=== PATIENT | female | born 1960 | race Native Hawaiian/Other Pacific Islander ===

== ENCOUNTER 2017-04-23 07:09 | Inpatient (IN) | payer MEDICAID ==
[2017-04-19 13:01] LABS: Hematocrit 41.4 % (30.3-42.9); Hemoglobin 14.1 gm/dl (10.1-14.3); Mean Corpuscular HGB Conc 34 % (30-34); Mean Corpuscular Hemoglobin 29 pg (28-32); Mean Corpuscular Volume 86 fl (79-97); Platelet Count 262 K/mm3 (140-440); Red Blood Count 4.83 M/mm3 (3.65-5.03); Red Cell Distribution Width 13.1 % (13.2-15.2); White Blood Count 10.1 K/mm3 (4.5-11.0)
--- NOTE | 2017-04-19 13:03 | Anesthesia Consultation ---
Anesthesia Consult and Med Hx Date of service: 04/23/17 - Airway Anesthetic Teeth Evaluation: Poor, Partials ROM Head & Neck: Adequate Mental/Hyoid Distance: Adequate Mallampati Class: Class III Intubation Access Assessment: Possibly Difficult - Pulmonary Exam CTA: Yes - Cardiac Exam Cardiac Exam: RRR - Pre-Operative Health Status ASA Pre-Surgery Classification: ASA2 Proposed Anesthetic Plan: Epidural, Spinal Nerve Block: Femoral - Pulmonary Hx Smoking: No Hx Asthma: No COPD: No Hx Sleep Apnea: No (JAME PRE SCREEN HIGH RISK.) - Cardiovascular System Hx Hypertension: Yes (X 15 YRS) Hx Coronary Artery Disease: No Hx Heart Attack/AMI: No Hx Angina: No - Central Nervous System Hx Seizures: No CVA: No Hx Back Pain: Yes (NECK PAIN) Hx Psychiatric Problems: No - Gastrointestinal Hx Gastroesophageal Reflux Disease: No - Endocrine Hx Renal Disease: (h/o nephrolithiasis treated) Hx Liver Disease: No Hx Non-Insulin Dependent Diabetes: No Hx Thyroid Disease: No - Other Systems Hx Cancer: No Hx Obesity: Yes
[2017-04-19 13:13] LABS: INR 0.94 (0.87-1.13)
[2017-04-19 13:14] LABS: Partial Thromboplastin Time 29.1 Sec. (24.2-36.6)
[2017-04-19 13:32] LABS: Alanine Aminotransferase 44 units/L (7-56); Albumin 4.5 g/dL (3.9-5); Albumin/Globulin Ratio 1.3 %; Alkaline Phosphatase 80 units/L (35-129); Anion Gap 22 mmol/L; BUN/Creatinine Ratio 38; Blood Urea Nitrogen 19 mg/dL (7-17); Calcium 9.6 mg/dL (8.4-10.2); Carbon Dioxide 22 mmol/L (22-30); Chloride 100.3 mmol/L (98-107); Glucose 92 mg/dL (65-100); Potassium 3.9 mmol/L (3.6-5.0); Sodium 140 mmol/L (137-145)
[2017-04-19 14:24] LABS: Basophils % (Manual) 0 % (0.0-1.8); Blastocytes % (Manual) 0 %; Diff Status Complete; RBC Morphology Normal
[~2017-04-23 07:09] MED LIST: NACL 0.9% 1000 ML 1,000 ML IV SCH; PEPCID IV NR; VANCOMYCIN/NS 1 GM/250 ML 1 GM/250 ML BAG IV NR; VERSED IV NR
[2017-04-23] MEDS ORDERED: NACL BACTERIOSTATIC INFILTRATI ONE (09:38)
[2017-04-23] MEDS ORDERED: SUBLIMAZE IV ONE (10:10)
[2017-04-23] MEDS ORDERED: DIPRIVAN 10 MG/ML IV ONE ×2 (10:15→12:05)
[2017-04-23] MEDS ORDERED: MARCAINE 0.5% 30 ML INFILTRATI ONE (10:21)
[2017-04-23] MEDS ORDERED: DECADRON ONE (10:21)
--- NOTE | 2017-04-23 10:34 | Anesthesia Day of Surgery ---
Anesthesia Day of Surgery - Day of Surgery Patient Examined: Yes Patient H&P Reviewed: Yes Patient is NPO: Yes
[2017-04-23] MEDS ORDERED: DEPO-MEDROL ONE (10:59)
[2017-04-23] MEDS ORDERED: TORADOL ONE (10:59)
[2017-04-23] MEDS ORDERED: NACL ONE (11:00)
[2017-04-23] MEDS ORDERED: MORPHINE ONE (11:00)
[2017-04-23] MEDS ORDERED: TRANEXAMIC ACID ONE (11:00)
[2017-04-23] MEDS ORDERED: VERSED ONE (11:10)
[2017-04-23] MEDS ORDERED: DILAUDID ONE (11:11)
[2017-04-23] MEDS ORDERED: TRANEXAMIC ACID IV ONE (11:17)
[2017-04-23] MEDS ORDERED: MORPHINE IM ONE (11:17)
[2017-04-23] MEDS ORDERED: NEOSPORIN GU IR ONE ×2 (11:17→11:30)
[2017-04-23] MEDS ORDERED: MARCAINE-EPI 0.5%-1:200,000 INFILTRATI ONE (11:17)
[2017-04-23] MEDS ORDERED: TORADOL IM ONE (11:17)
[2017-04-23] MEDS ORDERED: NACL 0.9% IR ONE ×2 (11:17)
[2017-04-23] MEDS ORDERED: NACL IV ONE (11:17)
[2017-04-23] MEDS ORDERED: DEPO-MEDROL INTRA-ARTI ONE (11:17)
[2017-04-23] MEDS ORDERED: MARCAINE 0.5% INFILTRATI ONE (11:30)
[2017-04-23] MEDS ORDERED: XYLOCAINE MPF 2% ONE (11:40)
[2017-04-23] MEDS ORDERED: TORADOL IV PRN (12:30)
[2017-04-23] MEDS ORDERED: ZOFRAN IV PRN (12:30)
[2017-04-23] MEDS ORDERED: MILK OF MAGNESIA PO PRN (12:30)
[2017-04-23] MEDS ORDERED: MORPHINE IV PRN ×2 (12:30)
[2017-04-23] MEDS ORDERED: SODIUM CHLORIDE FLUSH SYRINGE 10 ML IV PRN (12:30)
[2017-04-23] MEDS ORDERED: DULCOLAX PR PRN (12:30)
[2017-04-23] MEDS ORDERED: TYLENOL PO PRN (12:30)
[2017-04-23] MEDS ORDERED: NORCO 5/325 PO PRN (12:30)
[2017-04-23] MEDS ORDERED: PHENERGAN PR PRN (12:30)
[2017-04-23] MEDS ORDERED: AMBIEN PO PRN (12:30)
[2017-04-23] MEDS ORDERED: D5NS 1,000 ML IV SCH (13:00)
[2017-04-23] MEDS ORDERED: ePHEDrine SULFATE IV SCH (13:05)
--- NOTE | 2017-04-23 14:40 | Post Anesthesia Evaluation ---
- Post Anesthesia Evaluation Patient Participated: Yes Airway Patent: Yes Stable Respiratory Function: Yes Temp > 96.8F: Yes Pain Manageable: Yes Adequeate Hydration: Yes Anesthesia Complications: No
[2017-04-23] MEDS: ASPIRIN PO SCH (21:58)
--- NOTE | 2017-04-23 23:28 | Consultation ---
History of Present Illness - Reason for Consult Consult date: 04/23/17 Medical management Requesting physician: ROSIE MAS - History of Present Illness S/p Rt TKA -post op doing well.No comlications Past History Past Medical History: arthritis, hypertension Past Surgical History: total knee replacement Social history: no significant social history, lives with family Family history: hypertension Medications and Allergies Allergies Allergy/AdvReac Type Severity Reaction Status Date / Time Penicillins Allergy Rash, Verified 10/22/14 11:19 BURNING SENSATION Home Medications Medication Instructions Recorded Confirmed Last Taken Type Lisinopril/Hydrochlorothiazide 1 tab PO QDAY 04/15/14 04/23/17 04/23/17 History [Zestoretic 10-12.5 mg] Active Meds: Active Medications Acetaminophen (Tylenol) 650 mg PO Q4H PRN PRN Reason: Pain MILD(1-3)/Fever >100.5/HARDY Acetaminophen/Hydrocodone Bitart ([place] 5/325) 1 each PO Q6H PRN PRN Reason: Pain, Moderate (4-6) Aspirin (Aspirin) 325 mg PO BID [facility] Last Admin: 04/23/17 21:58 Dose: 325 mg Bisacodyl (Dulcolax) 10 mg [place] QDAY PRN PRN Reason: Constip unreliev by MOM/or NPO Celecoxib (Celebrex) 100 mg PO BID [facility] Last Admin: 04/23/17 21:58 Dose: 100 mg Sodium Chloride (Nacl 0.9% 1000 Ml) 1,000 mls @ 75 mls/hr IV DIRECT [facility] Last Admin: 04/23/17 09:50 Dose: 75 mls/hr Dextrose/Sodium Chloride (D5ns) 1,000 mls @ 100 mls/hr IV DIRECT [facility] Ketorolac Tromethamine (Toradol) 30 mg IV Q6H PRN PRN Reason: Pain, Moderate (4-6) Stop: 04/28/17 12:29 Magnesium Hydroxide (Milk Of Magnesia) 30 ml PO Q4H PRN PRN Reason: Constipation Midazolam HCl (Versed) 2 mg IV PREOP NR Stop: 04/23/17 23:59 Last Admin: 04/23/17 10:27 Dose: 2 mg Morphine Sulfate (Morphine) 2 mg IV Q4H PRN PRN Reason: Pain, Moderate (4-6) Morphine Sulfate (Morphine) 4 mg IV Q4H PRN PRN Reason: Pain , Severe (7-10) Ondansetron HCl (Zofran) 4 mg IV Q8H PRN PRN Reason: Nausea And Vomiting Promethazine HCl (Phenergan) 25 mg [place] Q6H PRN PRN Reason: Nausea And Vomiting Sodium Chloride (Sodium Chloride Flush Syringe 10 Ml) 10 ml IV PRN PRN PRN Reason: LINE FLUSH Zolpidem Tartrate (Ambien) 5 mg PO QHS PRN PRN Reason: Sleep Review of Systems All systems: negative Exam - Constitutional Vitals: Temp Pulse Resp BP Pulse Ox 98.0 F 62 16 104/47 95 04/23/17 20:35 04/23/17 20:35 04/23/17 21:58 04/23/17 20:35 04/23/17 20:35 General appearance: Present: no acute distress, well-nourished - EENT Eyes: Present: PERRL ENT: hearing intact, clear oral mucosa - Neck Neck: Present: supple, normal ROM - Respiratory Respiratory effort: normal Respiratory: bilateral: CTA - Cardiovascular Heart Sounds: Present: S1 & S2. Absent: rub, click - Extremities Extremities: pulses symmetrical, No edema Peripheral Pulses: within normal limits - Abdominal General gastrointestinal: Present: soft, non-tender, non-distended, normal bowel sounds Female genitourinary: Present: normal - Integumentary Integumentary: Present: clear, warm, dry - Musculoskeletal Musculoskeletal: gait normal, strength equal bilaterally - Psychiatric Psychiatric: appropriate mood/affect, intact judgment & insight - Neurologic Neurologic: CNII-XII intact, moves all extremities Results - Labs CBC & Chem 7: 04/19/17 12:30 04/19/17 12:30 Assessment and Plan - Patient Problems (1) HTN (hypertension) Current Visit: Yes Status: Chronic Qualifiers: Hypertension type: essential hypertension Qualified Code(s): I10 - Essential (primary) hypertension Plan to address problem: Cont Lisinopril (2) History of total knee arthroplasty Current Visit: Yes Status: Acute Qualifiers: Laterality: right Qualified Code(s): Z96.651 - Presence of right artificial knee joint Plan to address problem: Post op doing well Cont pT (3) DVT prophylaxis Current Visit: Yes Status: Acute
--- NOTE | 2017-04-24 07:01 | Short Stay Summary ---
Short Stay Documentation Date of service: 04/23/17 - History H&P: obtained from office - Allergies and Medications Current Medications: Allergies Penicillins Allergy (Verified 10/22/14 11:19) Rash, BURNING SENSATION Home Medications Medication Instructions Recorded Confirmed Last Taken Type Lisinopril/Hydrochlorothiazide 1 tab PO QDAY 04/15/14 04/23/17 04/23/17 History [Zestoretic 10-12.5 mg] Active Medications Acetaminophen (Tylenol) 650 mg PO Q4H PRN PRN Reason: Pain MILD(1-3)/Fever >100.5/HARDY Acetaminophen/Hydrocodone Bitart ([place] 5/325) 1 each PO Q6H PRN PRN Reason: Pain, Moderate (4-6) Aspirin (Aspirin) 325 mg PO BID [facility] Last Admin: 04/23/17 21:58 Dose: 325 mg Bisacodyl (Dulcolax) 10 mg [place] QDAY PRN PRN Reason: Constip unreliev by MOM/or NPO Celecoxib (Celebrex) 100 mg PO BID [facility] Last Admin: 04/23/17 21:58 Dose: 100 mg Sodium Chloride (Nacl 0.9% 1000 Ml) 1,000 mls @ 75 mls/hr IV DIRECT [facility] Last Admin: 04/23/17 09:50 Dose: 75 mls/hr Dextrose/Sodium Chloride (D5ns) 1,000 mls @ 100 mls/hr IV DIRECT [facility] Last Admin: 04/24/17 05:03 Dose: 100 mls/hr Ketorolac Tromethamine (Toradol) 30 mg IV Q6H PRN PRN Reason: Pain, Moderate (4-6) Stop: 04/28/17 12:29 Magnesium Hydroxide (Milk Of Magnesia) 30 ml PO Q4H PRN PRN Reason: Constipation Morphine Sulfate (Morphine) 2 mg IV Q4H PRN PRN Reason: Pain, Moderate (4-6) Morphine Sulfate (Morphine) 4 mg IV Q4H PRN PRN Reason: Pain , Severe (7-10) Ondansetron HCl (Zofran) 4 mg IV Q8H PRN PRN Reason: Nausea And Vomiting Promethazine HCl (Phenergan) 25 mg [place] Q6H PRN PRN Reason: Nausea And Vomiting Sodium Chloride (Sodium Chloride Flush Syringe 10 Ml) 10 ml IV PRN PRN PRN Reason: LINE FLUSH Zolpidem Tartrate (Ambien) 5 mg PO QHS PRN PRN Reason: Sleep Last Admin: 04/24/17 01:29 Dose: 5 mg - Brief post op/procedure progress note Date of procedure: 04/23/17 Pre-op diagnosis: DJD rt knee Post-op diagnosis: same Procedure: Total knee replacement Synovectomy of knee Anesthesia: GETA Surgeon: ROSIE MAS Estimated blood loss: none Pathology: none Specimen disposition: discarded Condition: stable - Disposition Condition at discharge: Stable Disposition: [id number] HOME [facility] - Discharge Diagnoses (1) DJD (degenerative joint disease) of knee Status: Acute Qualifiers: Osteoarthritis type: O Laterality: L Short Stay Discharge Plan Follow up with: PRIMARY CARE, [Primary Care Provider] - 7 Days
[2017-04-24 08:57] VITALS: BP 132/71
[2017-04-24] MEDS ORDERED: NON-FORMULARY (Lisinopril/Hydrochlorothiazide [Zestoretic 10-12.5 Mg] 1 TAB) PO SCH (10:00)
[2017-04-24] MEDS: ASPIRIN PO SCH (10:19)
[2017-04-24] MEDS ORDERED: HCTZ PO SCH (13:00)
[2017-04-24] MEDS ORDERED: ZESTRIL PO SCH (13:00)
--- NOTE | 2017-04-24 18:11 | Progress Note ---
Assessment and Plan Assessment and plan: --Hypertension; well controlled, continue current antihypertensive medications When necessary hydralazine --History of total knee arthroplasty; stable, physical therapy occupational therapy --DVT prophylaxis per protocol --Obesity; counseling done patient advised diet modification and exercise as tolerated and weight reduction as tolerated. Patient needs to follow with her primary care physician for her medical needs upon discharge History Interval history: Patient seen and evaluated Medical records reviewed, no new events reported by the nursing staff Patient feels better no new complaints Vital signs reviewed Hospitalist Physical - Constitutional Vitals: Temp Pulse Resp BP Pulse Ox 98 F 103 H 97 H 132/71 97 04/24/17 08:00 04/24/17 08:00 04/24/17 08:00 04/24/17 08:00 04/24/17 05:33 General appearance: Present: no acute distress, well-nourished, obese - EENT Eyes: Present: PERRL, EOM intact - Neck Neck: Present: supple, normal ROM - Respiratory Respiratory effort: normal Respiratory: bilateral: diminished, negative: rales, rhonchi, wheezing - Cardiovascular Rhythm: regular Heart Sounds: Present: S1 & S2 - Extremities Extremities: no ischemia, No edema - Abdominal General gastrointestinal: soft, non-tender, non-distended, normal bowel sounds - Integumentary Integumentary: Present: clear, warm - Psychiatric Psychiatric: appropriate mood/affect, cooperative - Neurologic Neurologic: CNII-XII intact, moves all extremities Results - Labs CBC & Chem 7: 04/19/17 12:30 04/19/17 12:30 Labs: Laboratory Last Values WBC 10.1 K/mm3 (4.5-11.0) 04/19/17 12:30 RBC 4.83 M/mm3 (3.65-5.03) 04/19/17 12:30 Hgb 14.1 gm/dl (10.1-14.3) 04/19/17 12:30 Hct 41.4 % (30.3-42.9) 04/19/17 12:30 MCV 86 fl (79-97) 04/19/17 12:30 MCH 29 pg (28-32) 04/19/17 12:30 MCHC 34 % (30-34) 04/19/17 12:30 RDW 13.1 % (13.2-15.2) L 04/19/17 12:30 Plt Count 262 K/mm3 (140-440) 04/19/17 12:30 Lymph # Sprayer Hand 04/19/17 12:30 Add Manual Diff Complete 04/19/17 12:30 Total Counted 100 04/19/17 12:30 Seg Neuts % (Manual) 50.0 % (40.0-70.0) 04/19/17 12:30 Band Neutrophils % 0 % 04/19/17 12:30 Lymphocytes % (Manual) 46.0 % (13.4-35.0) H 04/19/17 12:30 Reactive Lymphs % (Man) 0 % 04/19/17 12:30 Monocytes % (Manual) 2.0 % (0.0-7.3) 04/19/17 12:30 Eosinophils % (Manual) 2.0 % (0.0-4.3) 04/19/17 12:30 Basophils % (Manual) 0 % (0.0-1.8) 04/19/17 12:30 Metamyelocytes % 0 % 04/19/17 12:30 Myelocytes % 0 % 04/19/17 12:30 Promyelocytes % 0 % 04/19/17 12:30 Blast Cells % 0 % 04/19/17 12:30 Nucleated RBC % Not Reportable 04/19/17 12:30 Seg Neutrophils # Man 5.1 K/mm3 (1.8-7.7) 04/19/17 12:30 Band Neutrophils # 0.0 K/mm3 04/19/17 12:30 Lymphocytes # (Manual) 4.6 K/mm3 (1.2-5.4) 04/19/17 12:30 Abs React Lymphs (Man) 0.0 K/mm3 04/19/17 12:30 Monocytes # (Manual) 0.2 K/mm3 (0.0-0.8) 04/19/17 12:30 Eosinophils # (Manual) 0.2 K/mm3 (0.0-0.4) 04/19/17 12:30 Basophils # (Manual) 0.0 K/mm3 (0.0-0.1) 04/19/17 12:30 Metamyelocytes # 0.0 K/mm3 04/19/17 12:30 Myelocytes # 0.0 K/mm3 04/19/17 12:30 Promyelocytes # 0.0 K/mm3 04/19/17 12:30 Blast Cells # 0.0 K/mm3 04/19/17 12:30 WBC Morphology Not Reportable 04/19/17 12:30 Hypersegmented Neuts Not Reportable 04/19/17 12:30 Hyposegmented Neuts Not Reportable 04/19/17 12:30 Hypogranular Neuts Not Reportable 04/19/17 12:30 Smudge Cells Not Reportable 04/19/17 12:30 Toxic Granulation Not Reportable 04/19/17 12:30 Toxic Vacuolation Not Reportable 04/19/17 12:30 Dohle Bodies Not Reportable 04/19/17 12:30 Pelger-Huet Anomaly Not Reportable 04/19/17 12:30 Karen Rods Not Reportable 04/19/17 12:30 Platelet Estimate Appears normal 04/19/17 12:30 Clumped Platelets Not Reportable 04/19/17 12:30 Plt Clumps, EDTA Not Reportable 04/19/17 12:30 Large Platelets Not Reportable 04/19/17 12:30 Giant Platelets Not Reportable 04/19/17 12:30 Platelet Satelliting Not Reportable 04/19/17 12:30 Plt Morphology Comment Not Reportable 04/19/17 12:30 RBC Morphology Normal 04/19/17 12:30 Dimorphic RBCs Not Reportable 04/19/17 12:30 Polychromasia Not Reportable 04/19/17 12:30 Hypochromasia Not Reportable 04/19/17 12:30 Poikilocytosis Not Reportable 04/19/17 12:30 Anisocytosis Not Reportable 04/19/17 12:30 Microcytosis Not Reportable 04/19/17 12:30 Macrocytosis Not Reportable 04/19/17 12:30 Spherocytes Not Reportable 04/19/17 12:30 Pappenheimer Bodies Not Reportable 04/19/17 12:30 Sickle Cells Not Reportable 04/19/17 12:30 Target Cells Not Reportable 04/19/17 12:30 Tear Drop Cells Not Reportable 04/19/17 12:30 Ovalocytes Not Reportable 04/19/17 12:30 Helmet Cells Not Reportable 04/19/17 12:30 [place] Bodies Not Reportable 04/19/17 12:30 [place] Rings Not Reportable 04/19/17 12:30 Armando Cells Not Reportable 04/19/17 12:30 Bite Cells Not Reportable 04/19/17 12:30 Crenated Cell Not Reportable 04/19/17 12:30 Elliptocytes Not Reportable 04/19/17 12:30 Acanthocytes (Spur) Not Reportable 04/19/17 12:30 Rouleaux Not Reportable 04/19/17 12:30 Hemoglobin C Crystals Not Reportable 04/19/17 12:30 Schistocytes Not Reportable 04/19/17 12:30 Malaria parasites Not Reportable 04/19/17 12:30 Singh Bodies Not Reportable 04/19/17 12:30 Hem Pathologist Commnt No 04/19/17 12:30 PT 13.1 Sec. (12.2-14.9) 04/19/17 12:30 INR 0.94 (0.87-1.13) 04/19/17 12:30 APTT 29.1 Sec. (24.2-36.6) 04/19/17 12:30 Sodium 140 mmol/L (137-145) 04/19/17 12:30 Potassium 3.9 mmol/L (3.6-5.0) 04/19/17 12:30 Chloride 100.3 mmol/L (98-107) 04/19/17 12:30 Carbon Dioxide 22 mmol/L (22-30) 04/19/17 12:30 Anion Gap 22 mmol/L 04/19/17 12:30 BUN 19 mg/dL (7-17) H 04/19/17 12:30 Creatinine 0.5 mg/dL (0.7-1.2) L 04/19/17 12:30 Estimated GFR > 60 ml/min 04/19/17 12:30 BUN/Creatinine Ratio 38 % 04/19/17 12:30 Glucose 92 mg/dL (65-100) 04/19/17 12:30 Calcium 9.6 mg/dL (8.4-10.2) 04/19/17 12:30 Total Bilirubin 0.20 mg/dL (0.1-1.2) 04/19/17 12:30 AST 46 units/L (5-40) H 04/19/17 12:30 ALT 44 units/L (7-56) 04/19/17 12:30 Alkaline Phosphatase 80 units/L (35-129) 04/19/17 12:30 Total Protein 8.0 g/dL (6.3-8.2) 04/19/17 12:30 Albumin 4.5 g/dL (3.9-5) 04/19/17 12:30 Albumin/Globulin Ratio 1.3 % 04/19/17 12:30
--- NOTE | 2017-04-25 11:36 | Operative Report ---
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 SURGEON: Karly Fung MD FULL STACK SOFTWARE DEVELOPER: Claudia Campos RN ANESTHESIA: General. COMPONENTS USED: Biomet. PROCEDURE IN DETAIL: Once the patient was in surgical room, a time-out was carried out to identify the patient and procedure, prepping and draping of the patient done in usual fashion. The procedure was done by making a straight midline incision 15 cm in length. The incision was carried down to subcutaneous tissues. The medial parapatellar incision was carried out entering the joint. The knee was placed in flexion, and at this point, the synovectomy of the knee was carried out. The synovium was from the pouch and synovial pouch was resected and from the capsule sharply and bluntly and dissection was carried out from the superior pouch in both right and left aspects of the knee. Once the pouch was removed, the knee was released and the knee was placed in flexion with the patella everted. Using the Biomet instrumentation, using the intramedullary guide for the femur, extramedullary guide for the tibia, both areas were cut and prepared for the component insertion, site was determined. The tibial bearing was measured and determined. The patella was cut. At this point, the trial components removed. The wound was irrigated and dried up, Marcaine infiltrated in hour block fashion, % solution. The components were inserted using acrylic cement and the knee was assembled. Once the knee was fully assembled and stable, the procedure was continued by closure of the knee joint, irrigation of the knee with tranexamic acid, the wound closed with #1 Vicryl, 2-0 Vicryl and skin clips. This was done without any problems. There were no complications. The patient was taken to recovery room doing well. JOB# [id number] JULIANE/JEREMY
== END 2017-04-24 11:45 | disposition home health service (06) | DRG 470 ==
LOC: 3A 08:10 → 3B-SURG 13:35
PROC: 0SRC0J9 Replacement of Right Knee Joint with Synthetic Substitute, Cemented, Open Approach (ICD-10-PCS; principal; 2017-04-23)
PROC: 0SBC0ZZ Excision of Right Knee Joint, Open Approach (ICD-10-PCS; 2017-04-23)
DX: M17.11 Unilateral primary osteoarthritis, right knee (principal); I10 Essential (primary) hypertension; E66.9 Obesity, unspecified; M65.88 Other synovitis and tenosynovitis, other site; Z88.0 Allergy status to penicillin; Z68.36 Body mass index [BMI] 36.0-36.9, adult; Z71.3 Dietary counseling and surveillance; Z82.49 Family history of ischemic heart disease and other diseases of the circulatory system
CPT/HCPCS: 36415; 62324; 64450; 80053; 85007; 85025; 85610; 85730; 88304; 88305; 88311; A4217; C1776; J1030; J1100; J1170; J1885; J2250; J2270; J2704; J3010; J3370; J7030; J7042

== ENCOUNTER 2018-03-19 10:41 | Outpatient (CLI) | payer MEDICAID ==
--- NOTE | 2018-03-19 14:21 | Mammography Report ---
BILATERAL DIGITAL SCREENING MAMMOGRAM with CAD: 03/19/18 CLINICAL: Routine screening. COMPARISON:None available. However, a prior mammogram was apparently done at [facility]. FINDINGS: The breasts are mostly fatty. A right retroareolar areolar asymmetry on the CC view with architectural distortion and left partially circumscribed asymmetries on both views require comparison with the prior mammogram or additional imaging. No suspicious calcification. IMPRESSION: Bilateral asymmetries requiring further evaluation. BI-RADS CATEGORY: 0 -- Additional Evaluation Required RECOMMENDATION: Comparison with a previous mammogram. We will attempt to obtain a prior mammogram for comparison. If we do not obtain a prior mammogram within 30 days, a revised report will be issued recommending a recall for additional imaging. Please be advised that the patient should not schedule an appointment for return until adequate time (at least 2 weeks) has passed for us to obtain the prior mammogram. ACR BI-RADS MAMMOGRAPHIC CODES: 0 = Needs additional imaging evaluation; 1 = Negative; 2 = Benign; 3 = Probably benign; 4 = Suspicious; 5 = Malignant; 6 = Known biopsy-proven malignancy COMMENT: 1. Dense breast tissue, i.e., adenosis, fibrocystic changes, etc., may obscure an underlying neoplasm. 2. Approximately 10% of cancers are not detected with mammography. 3. A negative mammography report should not delay biopsy if a clinically suspicious mass is present. COMMENT: Patient follow-up letters are generated via our [employer] application.
== END 2018-03-19 10:42 | disposition home or self-care (01) ==
LOC: MAMMO 10:41
PROVIDERS: ATTEND Obstetrics & Gynecology
DX: Z12.31 Encounter for screening mammogram for malignant neoplasm of breast (principal); I10 Essential (primary) hypertension; E66.9 Obesity, unspecified; M19.90 Unspecified osteoarthritis, unspecified site; Z90.49 Acquired absence of other specified parts of digestive tract
CPT/HCPCS: 77067

== ENCOUNTER 2019-03-10 10:45 | Emergency (ER) | payer MEDICAID ==
[2019-03-10 10:54] VITALS: BP 138/83
--- NOTE | 2019-03-10 12:55 | Emergency Department Report ---
HPI - General Chief Complaint: Syncope Time Seen by Provider: 03/10/19 12:37 - HPI HPI: 58-year-old female presents to the emergency department with a complaint of left ankle pain and swelling and a syncopal episode. The ankle pain started last night. She said it felt warm like "there was a fever in it." She denies rolling her ankle or any injury. It is still hurting her and makes it difficult for her to bear weight. This morning the patient also started having some chills, dizziness and had a fainting spell. She is currently awake, alert and oriented and mostly just complains of the ankle pain and swelling at this time. She has a past medical history of hypertension. No recent travel or sick contacts at home. She has not taken anything for her symptoms prior to arrival. Her primary care physician is Dr. Steven Cazares. ED Past Medical Hx - Past Medical History Hx Hypertension: Yes (last 15 yrs) Hx Heart Attack/AMI: No Hx Congestive Heart Failure: No Hx Diabetes: No Hx Liver Disease: No Hx Renal Disease: (h/o nephrolithiasis treated) Hx Arthritis: Yes Hx Seizures: No Hx Asthma: No Hx COPD: No Hx Dementia: No Hx HIV: No - Surgical History Hx Cholecystectomy: Yes - Social History Smoking Status: Never Smoker Substance Use Type: None - Medications Home Medications: Home Medications Medication Instructions Recorded Confirmed Last Taken Type Lisinopril/Hydrochlorothiazide 1 tab PO QDAY 04/15/14 04/23/17 04/23/17 History [Zestoretic 10-12.5 mg] HYDROcodone/APAP 5-325 [[place] 1 each PO Q6HR PRN #8 tablet 03/10/19 Unknown Rx 5/325] ED Review of Systems ROS: Stated complaint: FAINTED/DIZZY/WEAK Other details as noted in HPI Comment: All other systems reviewed and negative Constitutional: chills, diaphoresis Eyes: denies: eye pain, vision change ENT: denies: ear pain, throat pain Respiratory: denies: cough, shortness of breath Cardiovascular: syncope. denies: chest pain Gastrointestinal: denies: abdominal pain, vomiting Genitourinary: denies: dysuria, discharge Musculoskeletal: joint swelling, arthralgia Skin: denies: rash, lesions Neurological: denies: headache, numbness, paresthesias Physical Exam - Physical Exam Vital Signs: Vital Signs 03/10/19 10:53 Temperature 98.2 F Pulse Rate 89 Respiratory 16 Rate Blood Pressure 138/83 [Left] O2 Sat by Pulse 95 Oximetry Physical Exam: GENERAL: The patient is well-developed well-nourished. HENT: Normocephalic. Atraumatic. Patient has moist mucous membranes. EYES: Extraocular motions are intact. Pupils equal reactive to light bilaterally. No nystagmus. NECK: Supple. Trachea is midline. CHEST/LUNGS: Clear to auscultation. There is no respiratory distress noted. HEART/CARDIOVASCULAR: Regular. There is no tachycardia. There is no murmur. ABDOMEN: Abdomen is soft, nontender. Patient has normal bowel sounds. There is no abdominal distention. SKIN: There is some circumferential left ankle swelling with warmth but no erythema or fluctuance. NEURO: The patient is awake, alert, and oriented. The patient is cooperative. The patient has no focal neurologic deficits. Normal speech. Cranial nerves II through XII grossly intact. MUSCULOSKELETAL: Tenderness to palpation to the circumferential left ankle. There is no evidence of acute injury. ED Course Vital Signs 03/10/19 10:53 Temperature 98.2 F Pulse Rate 89 Respiratory 16 Rate Blood Pressure 138/83 [Left] O2 Sat by Pulse 95 Oximetry ED Medical Decision Making - Lab Data Result diagrams: 03/10/19 13:21 03/10/19 13:21 - EKG Data -: EKG Interpreted by Me EKG shows normal: sinus rhythm, axis, intervals, QRS complexes, ST-T waves Rate: normal - EKG Data When compared to previous EKG there are: previous EKG unavailable Interpretation: normal EKG - Radiology Data Radiology results: report reviewed, image reviewed interpreted by me: Left ankle x-ray does not show any fracture, dislocation or any acute process. Left lower extremity venous Doppler ultrasound negative for DVT - Medical Decision Making This patient presents with 2 complaints. First, the patient had a syncopal episode earlier this morning. Since being in the emergency department she is awake, alert, oriented and in no acute distress. She does not have any focal, motor or sensory deficits and her cranial nerves are intact. EKG did not show any signs of ST elevation [place] or dysrhythmia. Her labs have been unremarkable including CBC, metabolic panel, TSH and troponin. She has not had any further episodes of passing out or any seizure-like activity while in the emergency department. Since it was just one episode of passing out without any further de ficits, I did not feel that CT imaging of the head was necessary at this time. Regarding her left ankle., The patient does have some circumferential left ankle swelling with warmth, but without erythema or fluctuance. X-ray shows some soft tissue swelling but no fracture or dislocation. She has a elevated uric acid level and this may be secondary to gout. Patient was given a dose of colchicine here and a prescription for some pain medication. She will follow up with primary care and has been given a referral for an orthopedist. She will return to the ER with any worsening of her symptoms or any acute distress. - Differential Diagnosis vasovagal, orthostatic hypotension, dysrhythmia, gout, osteoarthritis Critical Care Time: No Critical care attestation.: If time is entered above; I have spent that time in minutes in the direct care of this critically ill patient, excluding procedure time. ED Disposition Clinical Impression: Gout Syncope Qualifiers: Syncope type: unspecified Qualified Code(s): R55 - Syncope and collapse Left ankle pain Qualifiers: Chronicity: acute Qualified Code(s): M25.572 - Pain in left ankle and joints of left foot Disposition: DC- TO HOME OR SELFCARE Is pt being admited?: No Condition: Stable Instructions: Acute Gouty Arthritis (ED), Syncope (ED), Arthralgia (ED) Additional Instructions: Please follow-up with your primary care physician in the next few days. Return to the emergency Department with any worsening of your symptoms or any acute dis tress. I have given you a referral for a local orthopedist, Dr. Vallecillo, to follow up regarding your ankle pain. You have been prescribed a medication that is sedating and therefore should not be taken prior to driving, working, and responsible for children and in no way should be mixed with alcohol of any quantity. Prescriptions: HYDROcodone/APAP 5-325 [[place] 5/325] 1 each PO Q6HR PRN #8 tablet PRN Reason: Pain Referrals: STEVEN CAZARES MD [Staff Physician] - 2-3 Days LAMONTE VALLECILLO MD [Staff Physician] - 2-3 Days Time of Disposition: 14:18 Print Language: YI
--- NOTE | 2019-03-10 13:24 | XRay Report ---
Left ankle, 3 views INDICATION: Pain and swelling FINDINGS: The ankle mortise is intact. No fracture or dislocation. No significant spurring or arthrit ic change. There is moderate surrounding soft tissue swelling. No underlying bone or joint abnormalit y. Signer Name: Jamil Hart MD Signed: 03/10/2019 1:20 PM Workstation Name: [id number]
[2019-03-10 13:36] LABS: Basophils # (Auto) 0.1 K/mm3 (0.0-0.1); Basophils % (Auto) 0.4 % (0.0-1.8); Eosinophils # (Auto) 0.1 K/mm3 (0.0-0.4); Eosinophils % (Auto) 0.7 % (0.0-4.3); Hematocrit 37.9 % (30.3-42.9); Hemoglobin 12.7 gm/dl (10.1-14.3); Lymphocytes # (Auto) 3.4 K/mm3 (1.2-5.4); Lymphocytes % (Auto) 25.1 % (13.4-35.0); Mean Corpuscular HGB Conc 34 % (30-34); Mean Corpuscular Volume 87 fl (79-97); Monocytes % (Auto) 7.6 % (0.0-7.3); Platelet Count 274 K/mm3 (140-440); Red Blood Count 4.37 M/mm3 (3.65-5.03); Red Cell Distribution Width 12.8 % (13.2-15.2)
[2019-03-10 14:00] LABS: BUN/Creatinine Ratio 28; Blood Urea Nitrogen 14 mg/dL (7-17); Calcium 9.5 mg/dL (8.4-10.2); Hemolysis Index 7; Uric Acid 8.1 mg/dL (3.5-7.6)
--- NOTE | 2019-03-10 14:08 | Vascular Lab Report ---
DUPLEX DOPPLER LOWER EXTREMITY VEINS, LEFT INDICATION: LLE pain and swelling for 2 days. TECHNIQUE: Duplex doppler imaging was performed through the veins of the left lower extremity using venous compression and other maneuvers. COMPARISON: No relevant prior imaging study available. FINDINGS: Left Common femoral vein: Negative. Left Superficial femoral vein: Negative. Left Popliteal vein: Negative. Left Calf veins: Negative. Additional findings: None.. IMPRESSION: No sonographic evidence for DVT in the left lower extremity. Signer Name: Rubin Ramesh Jr, MD Signed: 03/10/2019 2:03 PM Workstation Name: [id number]
[2019-03-10] MEDS ORDERED: COLCHICINE PO ONE (14:15)
== END 2019-03-10 15:06 | disposition home or self-care (01) ==
LOC: ED 10:45
DX: M10.9 Gout, unspecified (principal); R55 Syncope and collapse; I10 Essential (primary) hypertension; M19.90 Unspecified osteoarthritis, unspecified site; Z87.442 Personal history of urinary calculi; Z90.49 Acquired absence of other specified parts of digestive tract; Z79.899 Other long term (current) drug therapy; Z88.0 Allergy status to penicillin
CPT/HCPCS: 36415; 80048; 84443; 84484; 84550; 85025; 93005; 93010